=== PATIENT | female | born 1985 | race Two or more races ===

== ENCOUNTER 2019-10-01 07:04 | Day surgery (SDC) | payer OTHER ==
[~2019-10-01] VITALS: Ht 172.7 cm; Wt 115.7 kg
[2019-10-01] VITALS (12 sets, daily range): BP systolic 102–138; BP diastolic 53–72
[~2019-10-01 07:04] MED LIST: ceFAZolin 1gm IVPB IVPB ONE; celeBREX 200mg Cap **SURGERY PATIENTS ONLY ORAL ONE; oxyCONTIN 20mg tab ORAL ONE
--- NOTE | 2019-10-01 07:22 | Operative Note - PDOC ---
Operative Note Operative Note Pre-op Diagnosis: right knee internal deragement Procedure: see op report Post-op Diagnosis: same as pre-op plus Operative Findings: consistent w/pre-op dx studies Anesthesia: MAC Specimen: none Complications: none Condition: stable Estimated Blood Loss: none Implant(s) used?: No Varun Briones MD Oct 01, 2019 07:22
--- NOTE | 2019-10-01 07:22 | Pre-Procedure Note/Attestation ---
Pre-Procedure Note/Attestation Complete Prior to Procedure Planned Procedure: right Procedure Narrative: knee arthroscopy, possible menisectomy, chondroplasty Indications for Procedure Pre-Operative Diagnosis: right knee internal deragement Attestation I attest that I discussed the nature of the procedure; its benefits; risks and complications; and alternatives (and the risks and benefits of such alternatives ), prior to the procedure, with the patient (or the patient's legal pharmaceutical specialty representative). I attest that, if there was a reasonable possibility of needing a blood transfusion, the patient (or the patient's legal pharmaceutical specialty representative) was given the [facility] standardized written summary, pursuant to the [place] Blood Safety Act ([place] Health and Safety Code # 1645, as amended). I attest that I re-evaluated the patient just prior to the surgery and that there has been no change in the patient's H&P, except as documented below: Varun Briones MD Oct 01, 2019 07:22
[2019-10-01] MEDS ORDERED: NITROFURANTOIN100 M2 ORAL (08:12)
[2019-10-01] MEDS ORDERED: FAMOTIDINE20 MG ORAL (08:14)
[2019-10-01] MEDS ORDERED: fentaNYL 100 mcg/2 mL IV ONE (08:21)
[2019-10-01] MEDS ORDERED: Midazolam 2mg/2ml Inj ONE (08:21)
[2019-10-01] MEDS ORDERED: Propofol 200mg/20ml IV ONE ×2 (08:42→09:58)
[2019-10-01] MEDS ORDERED: Ketorolac 30mg Inj ONE ×3 (08:43→10:36)
[2019-10-01] MEDS ORDERED: EPINEPHrine 1mg/1ml Amp ONE (09:38)
[2019-10-01] MEDS ORDERED: Duramorph PF 5mg/10ml amp ONE (09:39)
[2019-10-01] MEDS ORDERED: Kenalog-40 1ml Vial ONE (09:39)
[2019-10-01] MEDS ORDERED: Bupivacaine 0.25% Inj 30ml INJ ONE (09:39)
[2019-10-01] MEDS ORDERED: Lidocaine 1% 10mg/ml/Epi 0.005mg/ml 30ml vial INJ ONE (09:39)
[2019-10-01] MEDS ORDERED: NS Irrig 1000ml ONE (10:00)
[2019-10-01] MEDS ORDERED: LR 1000ml ONE (10:00)
[2019-10-01] MEDS ORDERED: Sterile Water Irrig 1000ml IRRIG ONE (10:00)
[2019-10-01] MEDS ORDERED: TransDerm Scop 1.5mg/72HR Patch TDERMAL ONE ×2 (10:04→10:45)
[2019-10-01] MEDS ORDERED: Dexamethasone 4mg/ml vial ONE (10:17)
[2019-10-01] MEDS ORDERED: LR 1000ml 1,000 ML IVLG SCH (10:43)
--- NOTE | 2019-10-01 10:43 | Anethesia Preoperative Eval ---
Anesthesia Pre-op PMH/ROS General Date of Evaluation: Oct 01, 2019 Time of Evaluation: 10:01 Anesthesiologist: Thais ASA Score: ASA 2 Mallampati Score Class I : Soft palate, uvula, fauces, pillars visible Class II: Soft palate, uvula, fauces visible Class III: Soft palate, base of uvula visible Class IV: Only hard plate visible Mallampati Classification: Class II Surgeon: Anselmo Diagnosis: R knee pain Surgical Procedure: R knee scope Anesthesia History: PONV Family History: no anesthesia problems Allergies: Coded Allergies: AMOXICILLIN (Verified Allergy, Severe, 09/30/19) hives, swelling CODEINE (Verified Allergy, Severe, 09/30/19) throat closes Medications: see eMAR Patient NPO?: Yes Past Medical History Cardiovascular: Denies: HTN, CAD, [place], valve dz, arrhythmia, other Pulmonary: Denies: asthma, COPD, JACQUELYN, other Gastrointestinal/Genitourinary: Reports: GERD; Denies: CRI, ESRD, other Neurologic/Psychiatric: Denies: dementia, CVA, depression/anxiety, TIA, other Endocrine: Denies: DM, hypothyroidism, steroids, other HEENT: Denies: cataract (L), cataract (R), glaucoma, [place] (L), [place] (R), other Hematology/Immune: Denies: anemia, DVT, bleeding disorder, other Musculoskeletal/Integumentary: Denies: OA, RA, DJD, DDD, edema, other Other: obesity PMH Narrative: Cholecystectomy, gastric sleeve PSxH Narrative: as above Anesthesia Pre-op Phys. Exam Physician Exam Last Vital Signs Date Time Temp Pulse Resp B/P (MAP) Pulse Ox O2 Delivery O2 Flow Rate FiO2 10/01/19 08:08 Room Air 10/01/19 07:40 97.2 64 18 138/53 100 Constitutional: NAD Neurologic: CN 2-12 intact Cardiovascular: RRR, no M/R/G Respiratory: CTA Gastrointestinal: other - obesity Airway Exam Mallampati Score: Class II MO: full Neck: flexible ROM: full Teeth: intact Dentures: no upper, no lower Anesthesia Pre-op A/P Labs see chart Urine Test Test 10/01/19 07:15 Urine HCG, Qualitative Negative (NEGATIVE) Studies Pre-op Studies: EKG - NSR Risk Assessment & Plan Assessment: ASA 2 Plan: GA with LMA PONV prevention Status Change Before Surgery: No Pre-Antibiotics Drug: ANcef 2gr Given Within 1 Hr of Incision: Yes Time Given: 10:28 Brian Plascencia MD Oct 01, 2019 10:43
[2019-10-01] MEDS ORDERED: NS Irrig 4000ml IRRIG ONE (10:44)
[2019-10-01] MEDS ORDERED: Meperidine 25mg/0.5ml Inj (FOR RIGORS ONLY) IV PRN (10:45)
[2019-10-01] MEDS ORDERED: Ketorolac 30mg Inj IV PRN (10:45)
[2019-10-01] MEDS ORDERED: Metoclopramide 10mg/2ml Inj IVP PRN (10:45)
[2019-10-01] MEDS ORDERED: DiphenhydrAMINE 50mg/ml Inj IVP PRN (10:45)
--- NOTE | 2019-10-01 11:05 | Immediate Post-Op Evaluation ---
Immediate Post-Op Evalulation Immediate Post-Op Evalulation Procedure: R knee arthroscopy, meniscectomy Date of Evaluation: Oct 01, 2019 Time of Evaluation: 11:04 IV Fluids: 800 Blood Products: none Estimated Blood Loss: min Urinary Output: none Blood Pressure Systolic: 134 Blood Pressure Diastolic: 72 Pulse Rate: 80 Respiratory Rate: 20 O2 Sat by Pulse Oximetry: 98 Temperature (Fahrenheit): 97.6 Pain Score (1-10): 1 Nausea: No Vomiting: No Complications none Patient Status: reacts, patent, none Hydration Status: adequate Brian Plascencia MD Oct 01, 2019 11:05
[2019-10-01] MEDS ORDERED: Metoclopramide 10mg/2ml Inj ONE (11:13)
--- NOTE | 2019-10-01 13:55 | 48 Hour Post Anesthesia Eval ---
Post Anesthesia Evaluation Procedure: R knee arthroscopy, meniscectomy Date of Evaluation: Oct 01, 2019 Time of Evaluation: 13:54 Blood Pressure Systolic: 136 0: 72 Pulse Rate: 68 Respiratory Rate: 20 Temperature (Fahrenheit): 97.6 O2 Sat by Pulse Oximetry: 98 Airway: patent Nausea: No Vomiting: No Pain Intensity: 2 Hydration Status: adequate Cardiopulmonary Status: stable Mental Status/LOC: patient returned to baseline Follow-up Care/Observations: n/a Post-Anesthesia Complications: none Follow-up care needed: ready to discharge Brian Plascencia MD Oct 01, 2019 13:55
--- NOTE | 2019-10-01 15:30 | Operative Note - Dictated ---
DATE OF OPERATION: 10/01/2019 PREOPERATIVE DIAGNOSIS: Right knee internal derangement. POSTOPERATIVE DIAGNOSES: 1. Right knee grade 2 chondral damage lateral tibial plateau. 2. Hypertrophic synovial tissue lateral patellofemoral compartment. 3. Medial plica. PROCEDURE: 1. Right knee diagnostic arthroscopy and gentle chondroplasty lateral compartment. 2. Synovectomy lateral patellofemoral compartment. SURGEON: Varun Briones M.D. ANESTHESIA: MAC with local. INDICATION FOR PROCEDURE: The patient is a pleasant 34-year-old female with progressive right knee pain. She had failed conservative treatment, elected to undergo right knee diagnostic arthroscopy and possible meniscectomy, synovectomy, chondroplasty. The risks, limitations, expectations, complications of procedure were discussed in detail. All questions addressed. DESCRIPTION OF PROCEDURE: After informed consent was obtained, the patient was brought to the operating room. The patient was placed under monitored anesthesia control. Right knee was prepped and draped in a sterile manner. Time-out was performed. Ancef was administered. An inferolateral stab incision was then made. Trocar introduced into the knee joint. There was hypertrophic synovial tissue in the patellofemoral compartment making visualization of the patellofemoral compartment somewhat difficult. The medial compartment was entered and a medial working portal was established. Synovectomy of the fat pad and synovium in the anterior portion was performed to better visualize the medial compartment. Medial compartment was entered. The medial compartment was free of meniscal chondral damage. The ACL was probed and noted to be intact. Lateral compartment was entered. There was significant grade 2 chondral damage of the tibial plateau. Some fraying of the anterior horn lateral meniscus. Partial chondroplasty was performed. The anterior and lateral meniscus was grossly intact although did have some degeneration or had some fraying. At this point, the camera was repositioned in the patellofemoral compartment. Excision of the fat pad and medial plica was performed. Once that was completed, an area of chondral damage in the medial condyle was identified. There was no soft tissue impingement in this area and therefore the instruments were now removed. At this point, the incision was closed using 3-0 Monocryl suture. Steri-Strips and a sterile dressing were applied. ESTIMATED BLOOD LOSS: None. COMPLICATIONS: None. SPECIMENS: None. IMPLANTS: None. Varun Briones M.D. DR: VARGHESE JOB#: [id number] CC:
[2019-10-01] MEDS ORDERED: D5 1/2NS 1,000 ML IV SCH (18:46)
== END 2019-10-01 13:00 | disposition home or self-care (01) ==
LOC: SUR 07:04
DX: M67.261 Synovial hypertrophy, not elsewhere classified, right lower leg (principal); M67.51 Plica syndrome, right knee; K21.9 Gastro-esophageal reflux disease without esophagitis; E66.9 Obesity, unspecified; Z90.49 Acquired absence of other specified parts of digestive tract; Z98.84 Bariatric surgery status; Z88.6 Allergy status to analgesic agent; Z88.0 Allergy status to penicillin; Z68.38 Body mass index [BMI] 38.0-38.9, adult
CPT/HCPCS: 29876; 81025; J0690; J1100; J1885; J2250; J2405; J2704; J2765; J3010; J3301; J3490; J7120; 94003; 94150